=== PATIENT | female | born 1950 | race Caucasian/White ===

== ENCOUNTER → 2017-04-13 | Outpatient (CLI) | payer MEDICARE, OTHER ==
[2017-04-13 13:42] LABS: CH 30.5; HCT 41.9 % (34.0-46.0); HDW 2.96; HGB 13.9 gm/dL (11.4-16.0); MCH 30.8 pg (25.0-35.0); MCHC 33.2 g/dL (31.0-37.0); MCV 92.7 fL (80.0-100.0); Mean Platelet Volume 7.5; RBC 4.52 m/uL (3.80-5.40); RDW 14.2 % (11.5-15.5); WBC 6.3 k/uL (3.8-10.6)
== END | disposition home or self-care (01) ==
LOC: LABWHC1 12:28
PROVIDERS: ATTEND Psychiatry & Neurology Psychiatry
DX: F31.60 Bipolar disorder, current episode mixed, unspecified (principal); Z79.899 Other long term (current) drug therapy
CPT/HCPCS: 36415; 80164; 84460; 85027

== ENCOUNTER → 2018-02-21 | Outpatient (CLI) | payer MEDICARE, OTHER | END | disposition home or self-care (01) | LOC: LABWHC1 11:03 | PROVIDERS: ATTEND Psychiatry & Neurology Psychiatry | DX: F31.60 Bipolar disorder, current episode mixed, unspecified (principal); Z79.899 Other long term (current) drug therapy | CPT/HCPCS: 36415; 80164 ==

== ENCOUNTER → 2018-04-27 | Outpatient (CLI) | payer MEDICARE, OTHER ==
[2018-04-27 13:20] LABS: Blood Urea Nitrogen 14 mg/dL (7-17)
--- NOTE | 2018-04-27 16:11 | CT ---
EXAMINATION TYPE: CT angio head DATE OF EXAM: 04/27/2018 HISTORY: Pre-op hx of brain aneurysm COMPARISON: 05/14/2013 CT DLP: 961.9 mGycm. Automated Exposure Control for Dose Reduction was Utilized. TECHNIQUE: CTA scan of the neck is performed with IV Contrast, patient injected with 100 mL of Isovu e 370, axial images are obtained, coronal and sagittal reformatted images are reviewed. Three-D recon structed images are created on an independent workstation and reviewed. FINDINGS: Carotid/Vascular Structures: Aneurysm coil clips are seen along the M2 segment of the right middle ce rebral artery. This creates spray artifact slightly limits examination of adjacent structures. The anterior cerebral arteries, left middle cerebral artery and its bifurcation, vertebral arteries, and posterior communicating arteries appear unremarkable. There is a saccular aneurysm of the basilar tip is seen left paracentrally measuring 4 mm. This is pr esent on series 9 image 19 and series 11 image 13. Other: There is encephalomalacia within the right frontal, parietal and temporal lobes from prior aircraft part assembler niectomy and craniotomy. Craniectomy defect is seen along the temporal bone and craniotomy defect on the frontal parietal region. There is subsequent ex vacuo dilatation of the right lateral ventricle. Evaluation of the remainder the intracranial structures is limited given technique with arterial pha se. Suboptimally evaluated within the right temporal lobe there is a area of heterogeneity that appears s omewhat rounded. This was hyperdense on the prior exam of 2012 and appears similar. This measures charlie roximately 1.4 cm. IMPRESSION: 1. Saccular 4 mm basilar tip aneurysm. 2. 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 3. Rounded heterogeneous region in the right temporal lobe. Considerations are for thrombosed aneurys m, meningioma, or postsurgical change. Enhanced MRI could further evaluate.
== END | disposition home or self-care (01) ==
LOC: RADCTMAIN 12:43
PROVIDERS: ATTEND Specialist
DX: I67.1 Cerebral aneurysm, nonruptured (principal); G93.89 Other specified disorders of brain; Z98.890 Other specified postprocedural states
CPT/HCPCS: 82565; 84520; 70496; 36415; Q9967

== ENCOUNTER → 2019-04-25 | Outpatient (CLI) | payer MEDICARE, OTHER ==
[2019-04-25 15:19] LABS: HCT 44.1 % (34.0-46.0); HGB 14.8 gm/dL (11.4-16.0); MCH 31.7 pg (25.0-35.0); MCHC 33.6 g/dL (31.0-37.0); MCV 94.6 fL (80.0-100.0); Platelet Count 226 k/uL (150-450); RBC 4.66 m/uL (3.80-5.40); RDW 13.8 % (11.5-15.5); WBC 7.7 k/uL (3.8-10.6)
== END | disposition home or self-care (01) ==
LOC: LABWHC1 12:46
PROVIDERS: ATTEND Psychiatry & Neurology Psychiatry
DX: F31.60 Bipolar disorder, current episode mixed, unspecified (principal); Z79.899 Other long term (current) drug therapy
CPT/HCPCS: 36415; 80164; 84460; 85027